=== PATIENT | female | born 1960 | race Caucasian/White ===

== ENCOUNTER 2018-10-27 11:24 | Emergency (ER) | payer OTHER ==
[2018-10-27 12:15] VITALS: BP 150/98
--- NOTE | 2018-10-27 12:16 | ED ---
Neurological HPI - HPI Summary HPI Summary: 58 yr old female with the complaint of room spinning, unsteady gait, headache. Onset of symptoms Tuesday when driving to work in [place]. She is a nurse. The patient reports she had to hide puller when driving due to extreme dizziness that lasted several minutes intensely. She has not felt well the past three days. she has had a posterior headache for two days. She has not been able to walk normally for over two days, and feels off balance. She has not had double vision or blurred vision. She has not had fever or chills. She has not had change in speech. She reports ringing in her ears, and also decreased hearing in left ear. - History of Current Complaint Chief Complaint: UCDizziness Stated Complaint: DIZZINESS, RINGING EARS Time Seen by Provider: 10/27/18 11:41 Pain Intensity: 4 - Allergy/Home Medications Allergies/Adverse Reactions: Allergies Allergy/AdvReac Type Severity Reaction Status Date / Time danazol Allergy "It Verified 10/27/18 11:33 triggered migraines." Home Medications: Home Medications Pseudoephedrine HCL ER TAB* [Sudafed 12 Hour*] 60 - 120 mg PO DAILY PRN [History Confirmed 10/27/18] PMH/Surg Hx/FS Hx/Imm Hx - Surgical History Surgery Procedure, Year, and Place: C-Sections, 1994 1992; Left Knee Arthroscopy for Supracondillar Fracture, 1992; Laporoscopy for Endometriosis, 1985; Infectious Disease History: No Infectious Disease History: Denies: Traveled Outside the [place] in Last 30 Days - Social History Alcohol Use: None Substance Use Type: Reports: None Smoking Status (MU): Never Smoked Tobacco Review of Systems Neurological: Other - unsteady gait Positive: Headache. Negative: Weakness, Paresthesia, Numbness, Syncope, Slurred Speech Positive: Anxious All Other Systems Reviewed And Are Negative: Yes Physical Exam - Summary Physical Exam Summary: Tearful Triage Information Reviewed: Yes Vital Signs On Initial Exam: Initial Vitals Temp Pulse Resp BP Pulse Ox 97.3 F 135 20 160/113 100 10/27/18 11:29 10/27/18 11:29 10/27/18 11:29 10/27/18 11:29 10/27/18 11:29 Vital Signs Reviewed: Yes Appearance: Positive: Well-Appearing, No Pain Distress Skin: Positive: Warm, Skin Color Reflects Adequate Perfusion Head/Face: Positive: Normal Head/Face Inspection Eyes: Positive: EOMI, YVONNE ENT: Positive: Pharynx normal, TMs normal - left TM WNL. Right TM with cerumen Neck: Positive: Nontender Respiratory/Lung Sounds: Positive: Clear to Auscultation, Breath Sounds Present Cardiovascular: Positive: RRR. Negative: Murmur Abdomen Description: Positive: Nontender Musculoskeletal: Positive: Strength/ROM Intact Neurological: Positive: Sensory/Motor Intact, Alert, Oriented to Person Place, Time, CN Intact II-III, Other - she walks with unsteady gait holding onto things. Psychiatric: Positive: Normal - [place] Coma Scale Best Eye Response: 4 - Spontaneous Best Motor Response: 6 - Obeys Commands Best Verbal Response: 5 - Oriented Coma Scale Total: 15 Diagnostics - Vital Signs Vital Signs Temp Pulse Resp BP Pulse Ox 10/27/18 11:29 97.3 F 135 20 160/113 100 - Laboratory Lab Statement: Any lab studies that have been ordered have been reviewed, and results considered in the medical decision making process. Course/Dx - Course Course Of Treatment: Case DW Becky adhl MD in [facility]. The patient refuses to go to a stroke center despite my recommendation. She will only go to the local hospital. This was relayed to Dr Dahl. The patient understands that they may recommend a transfer to Stroke center later after her work up. - Diagnoses Provider Diagnoses: Hypertension, Vertigo, Headache Discharge - Sign-Out/Discharge Documenting (check all that apply): Patient Departure All imaging exams completed and their final reports reviewed: No Studies - Discharge Plan Condition: Good Disposition: TRANS HIGHER LVL OF CARE FAC - Billing Disposition and Condition Condition: GOOD Disposition: Trans Higher Lvl of Care Fac
== END 2018-10-27 12:17 | disposition short-term general hospital (02) ==
LOC: UCCORT 11:24
DX: R51 Headache (principal); R42 Dizziness and giddiness; I10 Essential (primary) hypertension; Z88.8 Allergy status to other drugs, medicaments and biological substances
CPT/HCPCS: 99203; G0463